=== PATIENT | female | born 1985 | race Caucasian/White ===

== ENCOUNTER 2018-10-15 23:42 | Emergency (ER) | payer MEDICAID ==
[~2018-10-15] VITALS: Ht 160 cm; Wt 51.0 kg
[2018-10-16] MEDS ORDERED: ONDANSETRON ODT 4 MG PO ONE (00:30)
[2018-10-16] MEDS ORDERED: KETOROLAC 30 MG/1 ML ONE (00:30)
[2018-10-16] MEDS ORDERED: KETOROLAC 30 MG/1 ML IM ONE (00:30)
[2018-10-16] MEDS ORDERED: HYDROcodone/APAP 5/325 TABLET PO ONE (00:30)
[2018-10-16] MEDS ORDERED: ONDANSETRON ODT 4 MG ONE (00:30)
[2018-10-16] MEDS ORDERED: HYDROcodone/APAP 5/325 TABLET ONE (00:31)
[2018-10-16 00:36] LABS: BASOPHILS # (AUTO) 0.05 x10^3/uL (0-0.1); BASOPHILS % (AUTO) 1 % (0-1); EOSINOPHILS # (AUTO) 0.25 x10^3/uL (0-0.4); EOSINOPHILS % (AUTO) 3 % (1-7); LYMPHOCYTES # (AUTO) 2.47 x10^3/uL (1-3.4); LYMPHOCYTES % (AUTO) 34 % (22-44); MD NO; MEAN CORPUSCULAR HEMOGLOBIN 32.7 pg (27.0-34.8); MEAN CORPUSCULAR HGB CONC 34.3 g/dL (32.4-35.8); MEAN CORPUSCULAR VOLUME 95.4 fL (80-100); MEAN PLATELET VOLUME 7.6 fL (7.4-10.4); MONOCYTES # (AUTO) 0.48 x10^3/uL (0.2-0.8); MONOCYTES % (AUTO) 7 % (2-9); NEUTROPHILS % (AUTO) 55 % (42-75); PLATELET COUNT 239 x10^3/uL (130-400); RED CELL DISTRIBUTION WIDTH 13.1 % (9.6-15.2)
[2018-10-16 00:37] LABS: HCG UR SG 1.031 (1.003-1.030); MICROSCOPIC AUTO
[2018-10-16 00:40] LABS: CULTURE INDICATED? NO
[2018-10-16 00:43] LABS: ALANINE AMINOTRANSFERASE 17 U/L (12-78); ANION GAP 8 mmol/L (5-15); CALCIUM 8.5 mg/dL (8.5-10.1); CHLORIDE 108 mmol/L (98-107); CREATININE 1.23 mg/dL (0.55-1.02)
[2018-10-16 00:47] LABS: ALKALINE PHOSPHATASE 42 U/L (45-117); BILIRUBIN,TOTAL 0.7 mg/dL (0.2-1.0); TOTAL PROTEIN 7.4 g/dL (6.4-8.2)
[2018-10-16 04:41] VITALS: BP 102/64
== END 2018-10-16 04:43 | disposition home or self-care (01) ==
LOC: ED 10-16 00:29
DX: N83.11 Corpus luteum cyst of right ovary (principal); Z88.1 Allergy status to other antibiotic agents; Z88.0 Allergy status to penicillin; F17.200 Nicotine dependence, unspecified, uncomplicated
CPT/HCPCS: 36415; 74176; 76830; 80053; 81001; 81025; 83690; 84703; 85025; 96372; 99284; J1885; Q0162

== ENCOUNTER 2019-08-27 18:15 | Emergency (ER) | payer MEDICAID ==
[~2019-08-27] VITALS: Ht 160 cm; Wt 48.0 kg
--- NOTE | 2019-08-27 18:23 | NUR ---
CALLED, NO ANSWER.
--- NOTE | 2019-08-27 19:08 | NUR ---
PT PRESENTED WITH C/O VAGINAL DISCHARGE FOR A COUPLE WEEKS. DX W/HERPES AT [facility] 2 WEEKS AGO. PT ALSO C/O SORE THROAT AND WHITE PATCHES TO THROAT. MONITORS APPLIED, SIDERAIL SUP X2, CALL LIGHT WITHIN REACH
[2019-08-27] MEDS ORDERED: NYST1000 PO (19:09)
[2019-08-27] MEDS ORDERED: ACYC-114 PO (19:09)
[2019-08-27 19:33] LABS: HCG UR SG 1.026 (1.003-1.030)
[2019-08-27 19:35] LABS: CULTURE INDICATED? YES; MICROSCOPIC INDICATED
[2019-08-27 19:58] LABS: BASOPHILS # (AUTO) 0.04 x10^3/uL (0-0.1); BASOPHILS % (AUTO) 0 % (0-1); EOSINOPHILS # (AUTO) 0.37 x10^3/uL (0-0.4); EOSINOPHILS % (AUTO) 4 % (1-7); LYMPHOCYTES # (AUTO) 1.83 x10^3/uL (1-3.4); LYMPHOCYTES % (AUTO) 22 % (22-44); MD NO; MEAN CORPUSCULAR HGB CONC 33.1 g/dL (32.4-35.8); MEAN CORPUSCULAR VOLUME 96.7 fL (80-100); MEAN PLATELET VOLUME 6.9 fL (7.4-10.4); MONOCYTES # (AUTO) 0.53 x10^3/uL (0.2-0.8); MONOCYTES % (AUTO) 6 % (2-9); NEUTROPHILS # (AUTO) 5.74 x10^3/uL (1.8-6.8); NEUTROPHILS % (AUTO) 67 % (42-75); PLATELET COUNT 290 x10^3/uL (130-400); RED BLOOD COUNT 4.32 x10^6/uL (3.82-5.3); RED CELL DISTRIBUTION WIDTH 13.2 % (9.6-15.2)
[2019-08-27 20:08] LABS: ALBUMIN 3.6 g/dL (3.4-5.0); ANION GAP 4 mmol/L (5-15); CHLORIDE 109 mmol/L (98-107); CREATININE 1.11 mg/dL (0.55-1.02)
[2019-08-27 20:15] VITALS: BP 119/80
--- NOTE | 2019-08-27 20:15 | NUR ---
PT RESTING ON GURNEY, MONITORS IN PLACE, CALL LIGHT WITHIN REACH. ERP AT BEDSIDE FOR GYNE EXAM, SWABS TAKEN TO LAB
[2019-08-27 20:23] LABS: MONOSCREEN Negative (Negative)
[2019-08-27 20:36] LABS: CLUE CELLS PRESENT (NONE SEEN); WET PREP WBCS FEW (FEW)
== END 2019-08-27 21:09 | disposition home or self-care (01) ==
LOC: ED 20:31
DX: A60.04 Herpesviral vulvovaginitis (principal); N89.8 Other specified noninflammatory disorders of vagina; R07.0 Pain in throat
CPT/HCPCS: 36415; 80048; 81001; 81025; 82040; 85025; 86308; 87081; 87086; 87210; 87491; 87591; 87806; 87808; 87880; 99283; 99284; G0475

== ENCOUNTER 2021-03-30 15:36 | Emergency (ER) | payer MEDICAID ==
[~2021-03-30] VITALS: Ht 160 cm; Wt 47.8 kg
[~2021-03-30 15:36] MED LIST: ACYC-40 PO; NYST1000 PO
--- NOTE | 2021-03-30 17:29 | NUR ---
[id number]
--- NOTE | 2021-03-30 17:44 | NUR ---
PT TO ROOM 19 FROM [facility].
[2021-03-30 18:12] LABS: BASOPHILS % (AUTO) 1 % (0-1); EOSINOPHILS % (AUTO) 5 % (1-7); LYMPHOCYTES % (AUTO) 33 % (22-44); MD NO; MEAN CORPUSCULAR HEMOGLOBIN 32.8 pg (27.0-34.8); MEAN CORPUSCULAR HGB CONC 33.8 g/dL (32.4-35.8); MEAN PLATELET VOLUME 7.5 fL (7.4-10.4); MONOCYTES % (AUTO) 7 % (2-9); NEUTROPHILS % (AUTO) 55 % (42-75); PLATELET COUNT 230 x10^3/uL (130-400); RED BLOOD COUNT 3.75 x10^6/uL (3.82-5.3); RED CELL DISTRIBUTION WIDTH 13.4 % (9.6-15.2)
[2021-03-30 18:19] LABS: ALANINE AMINOTRANSFERASE 17 U/L (12-78); ALBUMIN 3.3 g/dL (3.4-5.0); CALCIUM 8.7 mg/dL (8.5-10.1)
[2021-03-30 18:23] LABS: ALKALINE PHOSPHATASE 42 U/L (45-117); BILIRUBIN,TOTAL 0.1 mg/dL (0.2-1.0); TOTAL PROTEIN 6.4 g/dL (6.4-8.2)
[2021-03-30 18:25] LABS: ANION GAP 4 mmol/L (5-15); CHLORIDE 112 mmol/L (98-107)
--- NOTE | 2021-03-30 18:25 | NUR ---
Note jenna in EDM - 03/30/21 at 1827 by JOHNY REPORT GIVEN TO AMERICO BOUDREAUX AT BEDSIDE, PT A&O, RESPS EVEN AND UNLABORED, DRESSED IN GOWN. PT C/O NAUSEA, HEMATURIA, DYSURIA, MIDLINE UPPER ABD PAIN, LEFT LATERAL ABD PAIN ONSET TODAY. AWAITING MD ASSESSMENT AND ORDERS.
--- NOTE | 2021-03-30 18:27 | NUR ---
PREVIOUS NOTE UNDONE CHARTED ON WRONG PT. BEDSIDE REPORT GIVEN TO AMERICO BOUDREAUX AT BEDSIDE. PT A&O, RESPS EVEN AND UNLABORED. BP AND SPO2 MONITORS IN PLACE.
[2021-03-30 18:32] VITALS: BP 94/46
== END 2021-03-30 19:05 | disposition home or self-care (01) ==
LOC: ED 18:22
DX: N93.8 Other specified abnormal uterine and vaginal bleeding (principal); N92.1 Excessive and frequent menstruation with irregular cycle; R10.30 Lower abdominal pain, unspecified; R42 Dizziness and giddiness; F17.200 Nicotine dependence, unspecified, uncomplicated
CPT/HCPCS: 36415; 76830; 80053; 84703; 85025; 99284